=== PATIENT | male | born 1945 ===

== ENCOUNTER 2019-05-22 05:39 | Day surgery (SDC) | payer OTHER ==
[~2019-05-22 05:39] MED LIST: FORTAMET500 MG PO; PRAVASTATIN SOD20 MG PO
== END 2019-05-22 15:30 | disposition home or self-care (01) ==
LOC: CIR.AMB 05:39
DX: M75.121 Complete rotator cuff tear or rupture of right shoulder, not specified as traumatic (principal); M65.811 Other synovitis and tenosynovitis, right shoulder; M19.011 Primary osteoarthritis, right shoulder